=== PATIENT | male | born 1945 | race Caucasian/White ===

== ENCOUNTER 2018-11-18 03:27 | Emergency (ER) | payer MEDICARE, MEDICAID ==
[~2018-11-18] VITALS: Ht 167.6 cm; Wt 77.0 kg
[2018-11-18 05:44] VITALS: BP 128/54
== END 2018-11-18 05:45 | disposition home or self-care (01) ==
LOC: ER 03:27
DX: E11.649 Type 2 diabetes mellitus with hypoglycemia without coma (principal); I10 Essential (primary) hypertension; Z79.4 Long term (current) use of insulin
CPT/HCPCS: 82962; 99283